=== PATIENT | male | born 1960 | race Caucasian/White ===

== ENCOUNTER 2017-03-29 19:40 | Inpatient (IN) | payer BC, OTHER ==
[~2017-03-29] VITALS: Ht 182.9 cm; Wt 104.6 kg
[~2017-03-29 19:40] MED LIST: AMIODARONE HCL (50 MG/ ML) 3 ML VIAL IV ONE; CALCIUM CHLOR(10%) 100MG/ML 10ML SYRINGE IV ONE; EPINEPHrine HCL 1 MG/10 ML SYRG IV ONE; SODIUM BICARBONATE 8.4% INJ 50ML SYRINGE IV ONE
[2017-03-29] MEDS ORDERED: AMIODARONE HCL 150 MG in D5W 5% 100 ML IV ONE (20:00)
[2017-03-29 20:02] LABS: Allen Test Yes; Base Excess -19.1 mmol/L (-2.0-2.0); Blood 02Sat 98.3 % (96-100); Blood COHb 3.8 % (0.5-1.5); Blood MetHb 0.3 % (0.0-1.5); HCO3 12.7 mmol/L (22-26.0); HHb 1.6 % (0.0-5.0); MODE VENT - A/C; O2Hb 94.3 % (94.0-97.0); PCO2 53.8 mmHg (35.0-45.0); PCO2(T) 46.2 mmHg (35.0-45.0); PO2 239.3 mmHg (80.0-100.0); Sample Type Arterial; pH 6.991 (7.350-7.450)
[2017-03-29] MEDS ORDERED: HEPARIN SODIUM (PORCINE) 5000 UNITS/ML 1ML VIAL ONE (20:02)
[2017-03-29] MEDS ORDERED: PROPOFOL 100 ML IV ONE (20:02)
[2017-03-29] MEDS ORDERED: HEPARIN SODIUM (PORCINE) 5000 UNITS/ML 1ML VIAL IV ONE (20:15)
[2017-03-29] MEDS ORDERED: PROPOFOL 10 MG/ML 20 ML IV ONE (20:15)
[2017-03-29] MEDS ORDERED: LIDOCAINE 2%HCL (LOCAL ANESTH.) INJ 20ML MDV ONE (20:18)
[2017-03-29] MEDS ORDERED: IODIXANOL 320MG/ML 100ML BTL IV ONE (20:18)
[2017-03-29 20:25] LABS: Basophils # (auto) 0.2 uL; Basophils % (auto) 0.9 % (0.0-2.0); DEFINITIVE VIEW TRANSMISSION; Eosinophils # (auto) 0.1 uL; Eosinophils % (auto) 0.6 % (0.0-7.0); Hematocrit 42.9 % (41.0-53.0); Hemoglobin 14.7 g/dL (13.5-17.5); Lymphocytes # (auto) 9.1 uL; Lymphocytes % (auto) 49.6 % (10.0-50.0); Mean Corpuscular Hemoglobin 32.3 pg (28.0-32.0); Mean Corpuscular Hgb Conc. 34.3 g/dL (32.0-36.0); Mean Corpuscular Volume 94.1 fL (80.0-100.0); Mean Platelet Volume 10.7 fL (7.4-10.4); Monocytes # (auto) 0.4 uL; Monocytes % (auto) 2.3 % (0.0-12.0); Neutrophils # (auto) 8.6 uL; Neutrophils % (auto) 46.6 % (37.0-80.0); Platelet Count (auto) 165 10^3/uL (140-450); Red Cell Distribution Width 12.7 % (11.6-16.0); White Blood Cell 18.4 10^3/uL (4.4-10.8)
[2017-03-29] MEDS ORDERED: EPTIFIBATIDE INJ (2MG/ML) 10ML VIAL IV ONE (20:31)
[2017-03-29] MEDS ORDERED: MIDAZOLAM HCL 1MG/1ML-2 ML VIAL ONE (20:31)
[2017-03-29] MEDS ORDERED: fentaNYL CITRATE 100 MCG/2 ML VL ONE (20:31)
[2017-03-29 20:44] LABS: Albumin 2.7 g/dL (3.4-5.0); Calcium 10.7 mg/dL (8.5-10.1); Magnesium 2.9 mg/dL (1.6-2.6); Potassium 3.2 mmol/L (3.5-5.1)
[2017-03-29] MEDS ORDERED: AMIODARONE HCL 900 MG in DEXTROSE 500 ML IV SCH (20:45)
[2017-03-29 20:46] LABS: INR 1.04 (0.9-1.15); Partial Thromboplastin Time 25.9 sec (22.64-33.71); Prothrombin Time 11.3 sec (9.37-12.3)
[2017-03-29 20:48] LABS: Bilirubin, Total 0.2 mg/dL (0.2-1.0); Total Protein 5.3 g/dL (6.4-8.2)
[2017-03-29 21:35] LABS: Lactic Acid w/Reflex 10.5 mmol/L (0.4-2.0)
[2017-03-29 21:36] LABS: REFLEX LACTIC ACID YES OR NO YES
[2017-03-29] MEDS ORDERED: NITROGLYCERIN 0.4 MG SL TAB SL PRN (22:15)
[2017-03-29] MEDS ORDERED: CLOPIDOGREL 300 MG TAB PO ONE (22:15)
[2017-03-29] MEDS ORDERED: MORPHINE SULF INJ 2 MG/ML SYRINGE 1ML IV PRN (22:15)
[2017-03-29 23:36] VITALS: BP 112/74
[2017-03-30] VITALS (104 sets, daily range): BP systolic 96–131; BP diastolic 49–81
[2017-03-30 00:42] LABS: Base Excess -8.5 mmol/L (-2.0-2.0); Blood COHb 0.9 % (0.5-1.5); Blood MetHb 0.4 % (0.0-1.5); HCO3 17.3 mmol/L (22-26.0); MODE VENT - A/C; O2Hb 96.7 % (94.0-97.0); PCO2 37.2 mmHg (35.0-45.0); PCO2(T) 37.2 mmHg (35.0-45.0); PO2 132.8 mmHg (80.0-100.0); PO2(T) 132.8 mmHg (80.0-100.0); Sample Type Arterial; pH 7.286 (7.350-7.450)
[2017-03-30] MEDS ORDERED: PROPOFOL 100 ML IV ONE (01:27)
[2017-03-30] MEDS: D5W/SOD CHL 0.45% 1,000 ML IV SCH ×3 (01:46→18:15)
[2017-03-30] MEDS: POTASSIUM CHL 20MEQ/100ML 100 ML IV SCH ×2 (01:46→03:35)
[2017-03-30] MEDS: PROPOFOL 100 ML IV SCH ×2 (01:58→23:33)
[2017-03-30] MEDS: AMIODARONE HCL 900 MG in DEXTROSE 500 ML IV SCH ×2 (02:45→18:56)
[2017-03-30 04:40] LABS: Anion Gap 9 (5-15); Blood Urea Nitrogen 20 mg/dL (7-18); Calcium 9.1 mg/dL (8.5-10.1); Carbon Dioxide 23 mmol/L (21-32); Chloride 109 mmol/L (98-107); Cholesterol 227 mg/dL (< 200); GFR African American 50 mL/min; GFR Non-African American 41 mL/min; Glucose 211 mg/dL (74-106); HDL Cholesterol 27 mg/dL (40-59); Potassium 5.1 mmol/L (3.5-5.1); Sodium 141 mmol/L (136-145); Triglycerides 546 mg/dL (< 150)
[2017-03-30] MEDS ORDERED: SODIUM BICARBONATE 8.4 % INJ 50ML VIAL IV ONE (07:15)
[2017-03-30 07:39] LABS: Hematocrit 49.7 % (41.0-53.0); Hemoglobin 16.9 g/dL (13.5-17.5); Mean Corpuscular Hgb Conc. 34.1 g/dL (32.0-36.0); Mean Corpuscular Volume 93.9 fL (80.0-100.0); Mean Platelet Volume 11.3 fL (7.4-10.4); Platelet Count (auto) 253 10^3/uL (140-450); Red Cell Distribution Width 12.9 % (11.6-16.0); SUSPECT VIEW TRANSMISSION; White Blood Cell 22.8 10^3/uL (4.4-10.8)
[2017-03-30 07:46] LABS: Metamyelocytes % 0; Myelocytes % 0; Promyelocytes % 0; Reactive Lymphocytes 0
[2017-03-30 08:16] LABS: Platelet Estimate Adequate; RBC Morphology Normal
[2017-03-30] MEDS: CLOPIDOGREL BISULFATE 75 MG TAB PO SCH (09:51)
[2017-03-30] MEDS: ENOXAPARIN SOD 40 MG/0.4 ML SYRINGE SC SCH (09:51)
[2017-03-30] MEDS: FAMOTIDINE (10MG/ML) 2ML VL IV SCH ×2 (09:51→21:52)
[2017-03-30] MEDS: ASPirin-EC 81 mg tab PO SCH (09:51)
[2017-03-30] MEDS: PIPERACILLIN-TAZOB 3.375GM 100 ML IV SCH ×3 (09:53→21:52)
[2017-03-30] MEDS: SUCRALFATE 1 GM/10 ML ORAL SUSP PO SCH ×3 (10:31→21:52)
[2017-03-30 11:07] LABS: Lactic Acid w/Reflex 2.8 mmol/L (0.4-2.0)
[2017-03-30 11:18] LABS: REFLEX LACTIC ACID YES OR NO NO
[2017-03-30 11:19] LABS: Allen Test Yes; Base Excess -0.8 mmol/L (-2.0-2.0); Blood 02Sat 97.8 % (96-100); Blood COHb 0.3 % (0.5-1.5); Blood MetHb 0.3 % (0.0-1.5); HCO3 22.6 mmol/L (22-26.0); HHb 2.2 % (0.0-5.0); IE RATIO 1.2.0; MODE VENT - A/C; O2Hb 97.2 % (94.0-97.0); PCO2 34.3 mmHg (35.0-45.0); PCO2(T) 34.3 mmHg (35.0-45.0); PIP 22; PO2 113.1 mmHg (80.0-100.0); PO2(T) 113.1 mmHg (80.0-100.0); Sample Type Arterial; Spont Vt 649; pH 7.437 (7.350-7.450)
[2017-03-30] MEDS: ACETAMINOPHEN 325 MG TAB PO PRN (16:32)
[2017-03-31] VITALS (105 sets, daily range): BP systolic 103–189; BP diastolic 23–114
[2017-03-31] MEDS: PIPERACILLIN-TAZOB 3.375GM 100 ML IV SCH ×4 (04:26→22:03)
[2017-03-31] MEDS: D5W/SOD CHL 0.45% 1,000 ML IV SCH ×3 (07:00→22:09)
[2017-03-31 07:46] LABS: Allen Test Yes; Base Excess -0.9 mmol/L (-2.0-2.0); Blood 02Sat 95.8 % (96-100); Blood COHb 0.4 % (0.5-1.5); Blood MetHb 0.1 % (0.0-1.5); HCO3 21.6 mmol/L (22-26.0); HHb 4.2 % (0.0-5.0); MODE VENT - A/C; O2Hb 95.3 % (94.0-97.0); PCO2 30.5 mmHg (35.0-45.0); PCO2(T) 31.2 mmHg (35.0-45.0); PO2 79.6 mmHg (80.0-100.0); PO2(T) 82.3 mmHg (80.0-100.0); Sample Type Arterial; pH 7.469 (7.350-7.450)
[2017-03-31] MEDS: ASPirin-EC 81 mg tab PO SCH (10:00)
[2017-03-31] MEDS: FAMOTIDINE (10MG/ML) 2ML VL IV SCH ×2 (10:29→22:03)
[2017-03-31] MEDS: ENOXAPARIN SOD 40 MG/0.4 ML SYRINGE SC SCH (10:29)
[2017-03-31] MEDS: CLOPIDOGREL BISULFATE 75 MG TAB PO SCH (10:30)
[2017-03-31 10:35] LABS: Hematocrit 44.8 % (41.0-53.0); Hemoglobin 15.6 g/dL (13.5-17.5); Mean Corpuscular Hemoglobin 32.4 pg (28.0-32.0); Mean Corpuscular Hgb Conc. 34.8 g/dL (32.0-36.0); Mean Corpuscular Volume 93.1 fL (80.0-100.0); Platelet Count (auto) 171 10^3/uL (140-450); SUSPECT VIEW TRANSMISSION; White Blood Cell 21.9 10^3/uL (4.4-10.8)
[2017-03-31 10:39] LABS: Metamyelocytes % 0; Myelocytes % 0; Promyelocytes % 0; Reactive Lymphocytes 0
[2017-03-31 10:56] LABS: BUN/Creatinine Ratio 12.4; Bilirubin, Total 0.7 mg/dL (0.2-1.0); Calcium 8.6 mg/dL (8.5-10.1); Potassium 3.6 mmol/L (3.5-5.1); Total Protein 6.3 g/dL (6.4-8.2)
[2017-03-31 11:03] LABS: Platelet Estimate Adequate
[2017-03-31] MEDS: SUCRALFATE 1 GM/10 ML ORAL SUSP PO SCH ×4 (12:00→22:03)
[2017-03-31] MEDS ORDERED: NITROGLYCERIN 50MG/250ML 250 ML IV ONE (13:47)
[2017-03-31] MEDS: CLINDAMYCIN 600MG IV 50 ML IV SCH ×2 (14:30→18:00)
[2017-03-31] MEDS: NITROGLYCERIN 50MG/250ML 250 ML IV SCH (14:30)
[2017-04-01] VITALS (106 sets, daily range): BP systolic 91–147; BP diastolic 42–91
[2017-04-01] MEDS: IPRATROPIUM BROM 0.5 MG/2.5ML INH SOL NEB SCH ×5 (00:14→23:58)
[2017-04-01] MEDS: ALBUTEROL SULF 2.5 MG/0.5ML(0.5%) NEB SOLN NEB SCH ×5 (00:15→23:58)
[2017-04-01] MEDS: PROPOFOL 100 ML IV SCH (01:44)
[2017-04-01] MEDS: AMIODARONE HCL 900 MG in DEXTROSE 500 ML IV SCH (02:45)
[2017-04-01] MEDS: PIPERACILLIN-TAZOB 3.375GM 100 ML IV SCH ×4 (04:19→22:00)
[2017-04-01] MEDS: SUCRALFATE 1 GM/10 ML ORAL SUSP PO SCH ×4 (06:16→22:00)
[2017-04-01] MEDS: CLINDAMYCIN 600MG IV 50 ML IV SCH ×4 (06:16→19:30)
[2017-04-01] MEDS: D5W/SOD CHL 0.45% 1,000 ML IV SCH (10:15)
[2017-04-01 10:19] LABS: Base Excess 0.4 mmol/L (-2.0-2.0); Blood 02Sat 91.3 % (96-100); Blood COHb 0.2 % (0.5-1.5); Blood MetHb 0.2 % (0.0-1.5); HCO3 24.1 mmol/L (22-26.0); HHb 8.7 % (0.0-5.0); MODE VENT - A/C; O2Hb 90.9 % (94.0-97.0); PCO2 36.1 mmHg (35.0-45.0); PCO2(T) 36.9 mmHg (35.0-45.0); PO2(T) 65.2 mmHg (80.0-100.0); Sample Type Arterial; pH 7.443 (7.350-7.450)
[2017-04-01 10:22] LABS: Basophils # (auto) 0.1 uL; Basophils % (auto) 0.4 % (0.0-2.0); Eosinophils # (auto) 0 uL; Eosinophils % (auto) 0.1 % (0.0-7.0); Hematocrit 38.9 % (41.0-53.0); Hemoglobin 13.3 g/dL (13.5-17.5); Lymphocytes # (auto) 1.5 uL; Lymphocytes % (auto) 7.7 % (10.0-50.0); Mean Corpuscular Hemoglobin 32.1 pg (28.0-32.0); Mean Corpuscular Hgb Conc. 34.3 g/dL (32.0-36.0); Mean Corpuscular Volume 93.7 fL (80.0-100.0); Mean Platelet Volume 10.2 fL (7.4-10.4); Monocytes # (auto) 1.1 uL; Monocytes % (auto) 5.7 % (0.0-12.0); Neutrophils # (auto) 16.5 uL; Neutrophils % (auto) 86.1 % (37.0-80.0); Platelet Count (auto) 163 10^3/uL (140-450); Red Cell Distribution Width 12.8 % (11.6-16.0); White Blood Cell 19.1 10^3/uL (4.4-10.8)
[2017-04-01 11:17] LABS: BUN/Creatinine Ratio 14.1; Calcium 8.2 mg/dL (8.5-10.1); Potassium 3.5 mmol/L (3.5-5.1)
[2017-04-01] MEDS: CLOPIDOGREL BISULFATE 75 MG TAB PO SCH (11:17)
[2017-04-01] MEDS: ASPirin-EC 81 mg tab PO SCH (11:17)
[2017-04-01] MEDS: FAMOTIDINE (10MG/ML) 2ML VL IV SCH ×2 (11:17→22:00)
[2017-04-01] MEDS: ENOXAPARIN SOD 40 MG/0.4 ML SYRINGE SC SCH (11:17)
[2017-04-01] MEDS: NITROGLYCERIN 50MG/250ML 250 ML IV SCH (14:30)
[2017-04-01] MEDS: LORazepam 2MG/ML-1ML VIAL IV PRN (17:24)
[2017-04-02] VITALS (107 sets, daily range): BP systolic 98–165; BP diastolic 49–137
[2017-04-02] MEDS: CLINDAMYCIN 600MG IV 50 ML IV SCH ×4 (00:33→18:10)
[2017-04-02] MEDS: PROPOFOL 100 ML IV SCH (00:37)
[2017-04-02] MEDS: AMIODARONE HCL 900 MG in DEXTROSE 500 ML IV SCH (02:45)
[2017-04-02 04:21] LABS: Basophils # (auto) 0 uL; Basophils % (auto) 0.2 % (0.0-2.0); Eosinophils # (auto) 0.2 uL; Hematocrit 34.5 % (41.0-53.0); Hemoglobin 11.8 g/dL (13.5-17.5); Lymphocytes # (auto) 1.8 uL; Lymphocytes % (auto) 11.9 % (10.0-50.0); Mean Corpuscular Hemoglobin 32.2 pg (28.0-32.0); Mean Corpuscular Hgb Conc. 34.3 g/dL (32.0-36.0); Mean Corpuscular Volume 93.8 fL (80.0-100.0); Mean Platelet Volume 10.3 fL (7.4-10.4); Monocytes # (auto) 0.8 uL; Monocytes % (auto) 5.7 % (0.0-12.0); Neutrophils # (auto) 11.9 uL; Neutrophils % (auto) 81.2 % (37.0-80.0); Platelet Count (auto) 182 10^3/uL (140-450); Red Cell Distribution Width 12.9 % (11.6-16.0); White Blood Cell 14.7 10^3/uL (4.4-10.8)
[2017-04-02] MEDS: PIPERACILLIN-TAZOB 3.375GM 100 ML IV SCH ×4 (04:41→22:23)
[2017-04-02 04:42] LABS: Calcium 8.1 mg/dL (8.5-10.1); Potassium 3.2 mmol/L (3.5-5.1)
[2017-04-02] MEDS: D5W/SOD CHL 0.45% 1,000 ML IV SCH ×3 (04:45→18:00)
[2017-04-02 04:46] LABS: BUN/Creatinine Ratio 16.4
[2017-04-02] MEDS: NITROGLYCERIN 50MG/250ML 250 ML IV SCH (04:48)
[2017-04-02] MEDS: SUCRALFATE 1 GM/10 ML ORAL SUSP PO SCH ×4 (06:15→22:23)
[2017-04-02] MEDS: ALBUTEROL SULF 2.5 MG/0.5ML(0.5%) NEB SOLN NEB SCH ×3 (06:24→18:35)
[2017-04-02] MEDS: IPRATROPIUM BROM 0.5 MG/2.5ML INH SOL NEB SCH ×3 (06:24→18:35)
[2017-04-02 07:57] LABS: Allen Test Modified; Base Excess 0.5 mmol/L (-2.0-2.0); Blood 02Sat 92.3 % (96-100); Blood COHb 0.3 % (0.5-1.5); Blood MetHb 0.3 % (0.0-1.5); HCO3 23.5 mmol/L (22-26.0); HHb 7.7 % (0.0-5.0); MODE VENT - A/C; O2Hb 91.7 % (94.0-97.0); PCO2 32.7 mmHg (35.0-45.0); PCO2(T) 32.7 mmHg (35.0-45.0); PO2 66.3 mmHg (80.0-100.0); PO2(T) 66.3 mmHg (80.0-100.0); Sample Type Arterial; pH 7.475 (7.350-7.450)
[2017-04-02] MEDS: LORazepam 2MG/ML-1ML VIAL IV PRN ×2 (09:13→11:48)
[2017-04-02] MEDS: FAMOTIDINE (10MG/ML) 2ML VL IV SCH ×2 (10:30→22:23)
[2017-04-02] MEDS: CLOPIDOGREL BISULFATE 75 MG TAB PO SCH (10:30)
[2017-04-02] MEDS: ASPirin-EC 81 mg tab PO SCH (10:30)
[2017-04-02] MEDS: ENOXAPARIN SOD 40 MG/0.4 ML SYRINGE SC SCH (10:30)
[2017-04-02] MEDS: POTASSIUM CHL 20MEQ/100ML 100 ML IV SCH ×2 (14:05→15:00)
[2017-04-03] VITALS (93 sets, daily range): BP systolic 104–184; BP diastolic 53–108
[2017-04-03] MEDS: ALBUTEROL SULF 2.5 MG/0.5ML(0.5%) NEB SOLN NEB SCH ×5 (00:13→23:58)
[2017-04-03] MEDS: IPRATROPIUM BROM 0.5 MG/2.5ML INH SOL NEB SCH ×5 (00:13→23:59)
[2017-04-03] MEDS: PROPOFOL 100 ML IV SCH (00:24)
[2017-04-03] MEDS: CLINDAMYCIN 600MG IV 50 ML IV SCH ×4 (00:24→17:19)
[2017-04-03] MEDS: AMIODARONE HCL 900 MG in DEXTROSE 500 ML IV SCH (02:45)
[2017-04-03 04:17] LABS: Basophils # (auto) 0.1 uL; Basophils % (auto) 0.6 % (0.0-2.0); Eosinophils # (auto) 0.4 uL; Hematocrit 32.5 % (41.0-53.0); Hemoglobin 11.1 g/dL (13.5-17.5); Lymphocytes # (auto) 1.5 uL; Lymphocytes % (auto) 15.2 % (10.0-50.0); Mean Corpuscular Hemoglobin 31.9 pg (28.0-32.0); Mean Corpuscular Volume 93.9 fL (80.0-100.0); Mean Platelet Volume 10.5 fL (7.4-10.4); Monocytes # (auto) 0.8 uL; Monocytes % (auto) 7.9 % (0.0-12.0); Neutrophils # (auto) 7.1 uL; Neutrophils % (auto) 72.3 % (37.0-80.0); Platelet Count (auto) 188 10^3/uL (140-450); Red Cell Distribution Width 12.8 % (11.6-16.0); White Blood Cell 9.8 10^3/uL (4.4-10.8)
[2017-04-03 04:39] LABS: Potassium 3.2 mmol/L (3.5-5.1)
[2017-04-03 04:49] LABS: Albumin 2.2 g/dL (3.4-5.0); Magnesium 2.4 mg/dL (1.6-2.6)
[2017-04-03] MEDS: PIPERACILLIN-TAZOB 3.375GM 100 ML IV SCH ×4 (05:17→22:00)
[2017-04-03 05:54] LABS: Bilirubin, Total 0.7 mg/dL (0.2-1.0); Total Protein 5.7 g/dL (6.4-8.2)
[2017-04-03 06:51] LABS: Allen Test Modified; Base Excess 2.1 mmol/L (-2.0-2.0); Blood 02Sat 94.6 % (96-100); Blood COHb 0.3 % (0.5-1.5); Blood MetHb 0.2 % (0.0-1.5); HCO3 24.2 mmol/L (22-26.0); HHb 5.4 % (0.0-5.0); MODE VENT - A/C; O2Hb 94.1 % (94.0-97.0); PCO2(T) 31.3 mmHg (35.0-45.0); Sample Type Arterial; pH 7.524 (7.350-7.450)
[2017-04-03] MEDS: SUCRALFATE 1 GM/10 ML ORAL SUSP PO SCH ×4 (08:00→22:00)
[2017-04-03] MEDS: D5W/SOD CHL 0.45% 1,000 ML IV SCH ×2 (08:00→12:15)
[2017-04-03] MEDS: LORazepam 2MG/ML-1ML VIAL IV PRN ×3 (08:00→18:28)
[2017-04-03] MEDS: ENOXAPARIN SOD 40 MG/0.4 ML SYRINGE SC SCH (09:53)
[2017-04-03] MEDS: FAMOTIDINE (10MG/ML) 2ML VL IV SCH ×2 (09:53→22:00)
[2017-04-03] MEDS: ASPirin-EC 81 mg tab PO SCH (09:54)
[2017-04-03] MEDS: CLOPIDOGREL BISULFATE 75 MG TAB PO SCH (09:54)
[2017-04-03] MEDS: POTASSIUM CHL 10% (20 MEQ/15ML) ORAL SOLN GT SCH (13:30)
[2017-04-03] MEDS ORDERED: LIDOCAINE 1% HCL (LOCAL ANESTH.) INJ 20ML MDV ID ONE (13:45)
[2017-04-03] MEDS: NITROGLYCERIN 50MG/250ML 250 ML IV SCH (15:08)
[2017-04-03 15:23] LABS: Allen Test Modified; Base Excess 0.8 mmol/L (-2.0-2.0); Blood 02Sat 96.6 % (96-100); Blood COHb 0.2 % (0.5-1.5); Blood MetHb 0.2 % (0.0-1.5); HCO3 23.6 mmol/L (22-26.0); HHb 3.4 % (0.0-5.0); MODE VENT - A/C; O2Hb 96.2 % (94.0-97.0); PCO2 32.3 mmHg (35.0-45.0); PCO2(T) 32.3 mmHg (35.0-45.0); PO2 91.2 mmHg (80.0-100.0); PO2(T) 91.2 mmHg (80.0-100.0); Sample Type Arterial; pH 7.482 (7.350-7.450)
[2017-04-03] MEDS: ACETAMINOPHEN 325 MG TAB PO PRN (17:19)
[2017-04-03 19:56] LABS: Allen Test Yes; Base Excess -0.2 mmol/L (-2.0-2.0); Blood 02Sat 95.8 % (96-100); Blood COHb 0.4 % (0.5-1.5); Blood MetHb 0.2 % (0.0-1.5); HCO3 22.8 mmol/L (22-26.0); HHb 4.2 % (0.0-5.0); MODE VENT - A/C; O2Hb 95.2 % (94.0-97.0); PCO2 32.5 mmHg (35.0-45.0); PCO2(T) 32.5 mmHg (35.0-45.0); PO2 82.8 mmHg (80.0-100.0); PO2(T) 82.8 mmHg (80.0-100.0); Sample Type Arterial; pH 7.464 (7.350-7.450)
[2017-04-03 20:07] LABS: Urine Bilirubin Negative (Negative); Urine Color Yellow (Yellow); Urine Glucose Normal (Normal); Urine Ketone Negative (Negative); Urine Mucus FEW (None Seen); Urine Nitrite Negative (Negative); Urine RBC 156 /hpf (0 - 3); Urine Squamous Epithelial Cell FEW /hpf (<5); Urine Urobilinogen Normal (Negative)
[2017-04-03 20:08] LABS: Urine Blood 2+ /uL (Negative)
[2017-04-03] MEDS: SODIUM CHLOR 0.9% PF (SALINE LOCK) 10ML VIAL IV SCH (22:00)
[2017-04-04] VITALS (79 sets, daily range): BP systolic 109–170; BP diastolic 57–95
[2017-04-04] MEDS: LORazepam 2MG/ML-1ML VIAL IV PRN (00:32)
[2017-04-04] MEDS: PROPOFOL 100 ML IV SCH (01:44)
[2017-04-04] MEDS: AMIODARONE HCL 900 MG in DEXTROSE 500 ML IV SCH (02:45)
[2017-04-04 03:47] LABS: Basophils # (auto) 0.2 uL; Basophils % (auto) 1.1 % (0.0-2.0); Eosinophils # (auto) 0.3 uL; Eosinophils % (auto) 2.5 % (0.0-7.0); Hematocrit 34.7 % (41.0-53.0); Hemoglobin 11.8 g/dL (13.5-17.5); Lymphocytes # (auto) 1.5 uL; Mean Corpuscular Hemoglobin 31.8 pg (28.0-32.0); Mean Corpuscular Hgb Conc. 33.9 g/dL (32.0-36.0); Mean Corpuscular Volume 93.7 fL (80.0-100.0); Mean Platelet Volume 10.6 fL (7.4-10.4); Monocytes % (auto) 7.6 % (0.0-12.0); Neutrophils # (auto) 10.8 uL; Neutrophils % (auto) 77.8 % (37.0-80.0); Platelet Count (auto) 206 10^3/uL (140-450); Red Cell Distribution Width 12.6 % (11.6-16.0); White Blood Cell 13.9 10^3/uL (4.4-10.8)
[2017-04-04 04:27] LABS: Albumin 2.3 g/dL (3.4-5.0); Calcium 7.9 mg/dL (8.5-10.1); Potassium 3.3 mmol/L (3.5-5.1)
[2017-04-04 04:29] LABS: BUN/Creatinine Ratio 17.1
[2017-04-04 04:32] LABS: Bilirubin, Total 1.1 mg/dL (0.2-1.0); Total Protein 6.5 g/dL (6.4-8.2)
[2017-04-04] MEDS: PIPERACILLIN-TAZOB 3.375GM 100 ML IV SCH ×4 (04:46→22:00)
[2017-04-04] MEDS: CLINDAMYCIN 600MG IV 50 ML IV SCH ×4 (06:00→17:20)
[2017-04-04] MEDS: IPRATROPIUM BROM 0.5 MG/2.5ML INH SOL NEB SCH ×3 (06:12→18:26)
[2017-04-04] MEDS: ALBUTEROL SULF 2.5 MG/0.5ML(0.5%) NEB SOLN NEB SCH ×3 (06:12→18:26)
[2017-04-04] MEDS: SUCRALFATE 1 GM/10 ML ORAL SUSP PO SCH ×4 (07:00→22:00)
[2017-04-04 07:28] LABS: Allen Test Yes; Base Excess -1.3 mmol/L (-2.0-2.0); Blood 02Sat 96.8 % (96-100); Blood COHb 0.3 % (0.5-1.5); Blood MetHb 0.3 % (0.0-1.5); HCO3 22.3 mmol/L (22-26.0); HHb 3.2 % (0.0-5.0); MODE VENT - A/C; O2Hb 96.2 % (94.0-97.0); PCO2 33.8 mmHg (35.0-45.0); PCO2(T) 33.8 mmHg (35.0-45.0); PO2 102.3 mmHg (80.0-100.0); PO2(T) 102.3 mmHg (80.0-100.0); Sample Type Arterial; pH 7.438 (7.350-7.450)
[2017-04-04] MEDS: CLOPIDOGREL BISULFATE 75 MG TAB PO SCH (09:41)
[2017-04-04] MEDS: FAMOTIDINE (10MG/ML) 2ML VL IV SCH ×2 (09:41→22:00)
[2017-04-04] MEDS: ASPirin-EC 81 mg tab PO SCH (09:41)
[2017-04-04] MEDS: SODIUM CHLOR 0.9% PF (SALINE LOCK) 10ML VIAL IV SCH ×2 (09:42→22:00)
[2017-04-04] MEDS: ENOXAPARIN SOD 40 MG/0.4 ML SYRINGE SC SCH (09:42)
[2017-04-04] MEDS: D5W/SOD CHL 0.45% 1,000 ML IV SCH ×3 (09:48→18:31)
[2017-04-04] MEDS: POTASSIUM CHL 10% (20 MEQ/15ML) ORAL SOLN GT SCH (09:49)
[2017-04-04] MEDS: NITROGLYCERIN 50MG/250ML 250 ML IV SCH (15:50)
[2017-04-05] VITALS (60 sets, daily range): BP systolic 107–160; BP diastolic 55–119
[2017-04-05] MEDS: ALBUTEROL SULF 2.5 MG/0.5ML(0.5%) NEB SOLN NEB SCH ×4 (00:47→18:18)
[2017-04-05] MEDS: IPRATROPIUM BROM 0.5 MG/2.5ML INH SOL NEB SCH ×4 (00:47→18:18)
[2017-04-05] MEDS: PROPOFOL 100 ML IV SCH (01:44)
[2017-04-05] MEDS: AMIODARONE HCL 900 MG in DEXTROSE 500 ML IV SCH (02:45)
[2017-04-05 04:10] LABS: Basophils # (auto) 0.1 uL; Basophils % (auto) 0.9 % (0.0-2.0); Eosinophils # (auto) 0.5 uL; Hemoglobin 11.3 g/dL (13.5-17.5); Lymphocytes # (auto) 1.5 uL; Lymphocytes % (auto) 9.6 % (10.0-50.0); Mean Corpuscular Hgb Conc. 34.1 g/dL (32.0-36.0); Mean Platelet Volume 10.6 fL (7.4-10.4); Monocytes % (auto) 6.4 % (0.0-12.0); Neutrophils # (auto) 12.6 uL; Neutrophils % (auto) 80.1 % (37.0-80.0); Platelet Count (auto) 207 10^3/uL (140-450); Red Cell Distribution Width 12.8 % (11.6-16.0); White Blood Cell 15.7 10^3/uL (4.4-10.8)
[2017-04-05] MEDS: PIPERACILLIN-TAZOB 3.375GM 100 ML IV SCH ×4 (04:19→21:24)
[2017-04-05 04:32] LABS: Albumin 2.2 g/dL (3.4-5.0); Bilirubin, Total 1.1 mg/dL (0.2-1.0); Potassium 3.4 mmol/L (3.5-5.1); Total Protein 5.8 g/dL (6.4-8.2)
[2017-04-05] MEDS: D5W/SOD CHL 0.45% 1,000 ML IV SCH ×2 (05:30→14:15)
[2017-04-05] MEDS: CLINDAMYCIN 600MG IV 50 ML IV SCH ×4 (06:00→17:51)
[2017-04-05] MEDS: SUCRALFATE 1 GM/10 ML ORAL SUSP PO SCH ×4 (07:00→21:24)
[2017-04-05 08:29] LABS: Allen Test Modified; Base Excess -1.8 mmol/L (-2.0-2.0); Blood 02Sat 95.3 % (96-100); Blood MetHb 0.2 % (0.0-1.5); HCO3 21.3 mmol/L (22-26.0); HHb 4.6 % (0.0-5.0); MODE VENT - A/C; O2Hb 94.2 % (94.0-97.0); PCO2 32.2 mmHg (35.0-45.0); PCO2(T) 32.2 mmHg (35.0-45.0); PIP 21; PO2 78.9 mmHg (80.0-100.0); PO2(T) 78.9 mmHg (80.0-100.0); Sample Type Arterial; pH 7.438 (7.350-7.450)
[2017-04-05] MEDS: FAMOTIDINE (10MG/ML) 2ML VL IV SCH ×2 (10:11→21:24)
[2017-04-05] MEDS: CLOPIDOGREL BISULFATE 75 MG TAB PO SCH (10:15)
[2017-04-05] MEDS: POTASSIUM CHL 10% (20 MEQ/15ML) ORAL SOLN GT SCH (10:15)
[2017-04-05] MEDS: SODIUM CHLOR 0.9% PF (SALINE LOCK) 10ML VIAL IV SCH ×2 (10:15→21:24)
[2017-04-05] MEDS: ENOXAPARIN SOD 40 MG/0.4 ML SYRINGE SC SCH (10:15)
[2017-04-05] MEDS: ASPirin-EC 81 mg tab PO SCH (10:15)
[2017-04-05] MEDS: NITROGLYCERIN 50MG/250ML 250 ML IV SCH (14:30)
[2017-04-05] MEDS ORDERED: [UNRECOGNIZED DRUG - OTHER] IV PRN (17:45)
[2017-04-05] MEDS ORDERED: CHLORPROMAZINE IV PRN (17:45)
[2017-04-06] VITALS (107 sets, daily range): BP systolic 102–166; BP diastolic 49–105
[2017-04-06] MEDS: D5W/SOD CHL 0.45% 1,000 ML IV SCH ×3 (00:26→19:00)
[2017-04-06] MEDS: CLINDAMYCIN 600MG IV 50 ML IV SCH ×4 (00:26→18:13)
[2017-04-06] MEDS: IPRATROPIUM BROM 0.5 MG/2.5ML INH SOL NEB SCH ×4 (00:30→18:40)
[2017-04-06] MEDS: ALBUTEROL SULF 2.5 MG/0.5ML(0.5%) NEB SOLN NEB SCH ×4 (00:30→18:40)
[2017-04-06] MEDS: PROPOFOL 100 ML IV SCH (01:44)
[2017-04-06] MEDS: PIPERACILLIN-TAZOB 3.375GM 100 ML IV SCH ×4 (04:00→21:36)
[2017-04-06] MEDS: SUCRALFATE 1 GM/10 ML ORAL SUSP PO SCH ×4 (06:42→21:36)
[2017-04-06 07:26] LABS: Allen Test Modified; Blood 02Sat 95.1 % (96-100); Blood COHb 0.3 % (0.5-1.5); Blood MetHb 0.1 % (0.0-1.5); HCO3 25.4 mmol/L (22-26.0); HHb 4.9 % (0.0-5.0); MODE VENT - A/C; O2Hb 94.7 % (94.0-97.0); PCO2 35.6 mmHg (35.0-45.0); PCO2(T) 35.6 mmHg (35.0-45.0); PO2 82.6 mmHg (80.0-100.0); PO2(T) 82.6 mmHg (80.0-100.0); Sample Type Arterial; pH 7.471 (7.350-7.450)
[2017-04-06 08:31] LABS: Basophils # (auto) 0.1 uL; Basophils % (auto) 0.9 % (0.0-2.0); Eosinophils # (auto) 0.5 uL; Eosinophils % (auto) 3.6 % (0.0-7.0); Hematocrit 36.1 % (41.0-53.0); Hemoglobin 12.5 g/dL (13.5-17.5); Lymphocytes # (auto) 1.3 uL; Lymphocytes % (auto) 8.8 % (10.0-50.0); Mean Corpuscular Hemoglobin 32.4 pg (28.0-32.0); Mean Corpuscular Hgb Conc. 34.6 g/dL (32.0-36.0); Mean Corpuscular Volume 93.4 fL (80.0-100.0); Mean Platelet Volume 10.5 fL (7.4-10.4); Monocytes # (auto) 1.2 uL; Monocytes % (auto) 8.1 % (0.0-12.0); Neutrophils # (auto) 11.4 uL; Neutrophils % (auto) 78.6 % (37.0-80.0); Platelet Count (auto) 218 10^3/uL (140-450); Red Cell Distribution Width 13.1 % (11.6-16.0); White Blood Cell 14.5 10^3/uL (4.4-10.8)
[2017-04-06 08:37] LABS: Albumin 2.3 g/dL (3.4-5.0); Bilirubin, Total 1.1 mg/dL (0.2-1.0); Calcium 8.4 mg/dL (8.5-10.1); Potassium 3.5 mmol/L (3.5-5.1); Total Protein 6.4 g/dL (6.4-8.2)
[2017-04-06] MEDS: ENOXAPARIN SOD 40 MG/0.4 ML SYRINGE SC SCH (10:15)
[2017-04-06] MEDS: SODIUM CHLOR 0.9% PF (SALINE LOCK) 10ML VIAL IV SCH ×2 (10:16→21:36)
[2017-04-06] MEDS: FAMOTIDINE (10MG/ML) 2ML VL IV SCH ×2 (10:16→21:36)
[2017-04-06] MEDS: POTASSIUM CHL 10% (20 MEQ/15ML) ORAL SOLN GT SCH (10:16)
[2017-04-06] MEDS: CLOPIDOGREL BISULFATE 75 MG TAB PO SCH (10:16)
[2017-04-06] MEDS: ASPirin-EC 81 mg tab PO SCH (10:16)
[2017-04-06] MEDS: NITROGLYCERIN 50MG/250ML 250 ML IV SCH (13:13)
[2017-04-06] MEDS: LORazepam 2MG/ML-1ML VIAL IV PRN (16:54)
[2017-04-07] VITALS (74 sets, daily range): BP systolic 102–162; BP diastolic 54–96
[2017-04-07] MEDS: ALBUTEROL SULF 2.5 MG/0.5ML(0.5%) NEB SOLN NEB SCH ×2 (00:15→05:41)
[2017-04-07] MEDS: IPRATROPIUM BROM 0.5 MG/2.5ML INH SOL NEB SCH ×2 (00:15→05:42)
[2017-04-07] MEDS: PIPERACILLIN-TAZOB 3.375GM 100 ML IV SCH ×2 (03:20→10:02)
[2017-04-07] MEDS: D5W/SOD CHL 0.45% 1,000 ML IV SCH (06:26)
[2017-04-07] MEDS: CLINDAMYCIN 600MG IV 50 ML IV SCH ×2 (06:26)
[2017-04-07] MEDS: SUCRALFATE 1 GM/10 ML ORAL SUSP PO SCH (06:27)
[2017-04-07 08:10] LABS: Allen Test Yes; Base Excess -0.4 mmol/L (-2.0-2.0); Blood 02Sat 96.2 % (96-100); Blood COHb 0.8 % (0.5-1.5); Blood MetHb 0.2 % (0.0-1.5); HCO3 22.3 mmol/L (22-26.0); HHb 3.8 % (0.0-5.0); MODE VENT - A/C; O2Hb 95.2 % (94.0-97.0); PCO2 31.1 mmHg (35.0-45.0); PCO2(T) 31.1 mmHg (35.0-45.0); PIP 28; Sample Type Arterial; Spont Vt 677; pH 7.474 (7.350-7.450)
[2017-04-07] MEDS ORDERED: LEVOFLOXACIN 500MG 100 ML IV SCH (10:00)
[2017-04-07] MEDS: ENOXAPARIN SOD 40 MG/0.4 ML SYRINGE SC SCH (10:02)
[2017-04-07] MEDS: FAMOTIDINE (10MG/ML) 2ML VL IV SCH (10:02)
[2017-04-07] MEDS: ASPirin-EC 81 mg tab PO SCH (10:02)
[2017-04-07] MEDS: CLOPIDOGREL BISULFATE 75 MG TAB PO SCH (10:02)
[2017-04-07] MEDS: SODIUM CHLOR 0.9% PF (SALINE LOCK) 10ML VIAL IV SCH (10:03)
[2017-04-07] MEDS: POTASSIUM CHL 10% (20 MEQ/15ML) ORAL SOLN GT SCH (10:03)
[2017-04-07] MEDS ORDERED: LEVOFLOXACIN 500MG 100 ML IV ONE (10:04)
[2017-04-07] MEDS ORDERED: LORazepam 2MG/ML-1ML VIAL IV PRN (11:15)
[2017-04-07] MEDS: MORPHINE SULF INJ 2 MG/ML SYRINGE 1ML IV PRN ×4 (11:20→22:59)
[2017-04-08] MEDS: MORPHINE SULF INJ 2 MG/ML SYRINGE 1ML IV PRN ×3 (03:05→20:35)
[2017-04-08 05:46] VITALS: BP 131/82
[2017-04-08 09:00] VITALS: BP 137/79
[2017-04-08 13:00] VITALS: BP 138/75
[2017-04-08 17:00] VITALS: BP 158/103
[2017-04-08 22:00] VITALS: BP 163/98
[2017-04-09] MEDS: MORPHINE SULF INJ 2 MG/ML SYRINGE 1ML IV PRN ×3 (00:14→11:03)
[2017-04-09 05:00] VITALS: BP 147/86
[2017-04-09 08:24] VITALS: BP 144/77
[2017-04-09 12:30] VITALS: BP 138/90
[2017-04-09 17:22] VITALS: BP 158/96
[2017-04-09 21:51] VITALS: BP 154/101
[2017-04-10 05:23] VITALS: BP 130/88
[2017-04-10 09:41] VITALS: BP 125/83
[2017-04-10 13:00] VITALS: BP 126/83
[2017-04-10 17:08] VITALS: BP 121/70
[2017-04-10 22:00] VITALS: BP 136/80
[2017-04-11 05:38] VITALS: BP 112/51
[2017-04-11] MEDS: MORPHINE SULF INJ 2 MG/ML SYRINGE 1ML IV PRN (07:45)
[2017-04-11 09:27] VITALS: BP 162/102
[2017-04-11 13:00] VITALS: BP 146/89
[2017-04-11 16:43] VITALS: BP 140/86
[2017-04-11 16:45] VITALS: BP 140/86
== END 2017-04-11 18:40 | disposition hospice, home (50) | DRG 246 ==
LOC: ER 19:44 → CATH 1 21:33 → ICU WEST 21:34 → CENTRAL 04-07 18:27
PROVIDERS: ADMIT Specialist; ATTEND Specialist
PROC: 5A2204Z Restoration of Cardiac Rhythm, Single (ICD-10-PCS; principal; 2017-03-29)
PROC: 02C03ZZ Extirpation of Matter from Coronary Artery, One Artery, Percutaneous Approach (ICD-10-PCS; 2017-03-29)
PROC: 027035Z Dilation of Coronary Artery, One Artery with Two Drug-eluting Intraluminal Devices, Percutaneous Approach (ICD-10-PCS; 2017-03-29)
PROC: 5A1955Z Respiratory Ventilation, Greater than 96 Consecutive Hours (ICD-10-PCS; 2017-03-29)
PROC: 0BH17EZ Insertion of Endotracheal Airway into Trachea, Via Natural or Artificial Opening (ICD-10-PCS; 2017-03-29)
PROC: 4A023N7 Measurement of Cardiac Sampling and Pressure, Left Heart, Percutaneous Approach (ICD-10-PCS; 2017-03-29)
PROC: B2111ZZ Fluoroscopy of Multiple Coronary Arteries using Low Osmolar Contrast (ICD-10-PCS; 2017-03-29)
PROC: B41G1ZZ Fluoroscopy of Left Lower Extremity Arteries using Low Osmolar Contrast (ICD-10-PCS; 2017-03-29)
PROC: 02HV33Z Insertion of Infusion Device into Superior Vena Cava, Percutaneous Approach (ICD-10-PCS; 2017-03-29)
PROC: 5A12012 Performance of Cardiac Output, Single, Manual (ICD-10-PCS; 2017-03-29)
DX: I21.19 ST elevation (STEMI) myocardial infarction involving other coronary artery of inferior wall (principal); I49.01 Ventricular fibrillation; J96.00 Acute respiratory failure, unspecified whether with hypoxia or hypercapnia; J18.9 Pneumonia, unspecified organism; E87.0 Hyperosmolality and hypernatremia; E87.2 Acidosis; G93.1 Anoxic brain damage, not elsewhere classified; N17.9 Acute kidney failure, unspecified; J44.0 Chronic obstructive pulmonary disease with (acute) lower respiratory infection; E66.9 Obesity, unspecified; E78.5 Hyperlipidemia, unspecified; I10 Essential (primary) hypertension; I25.10 Atherosclerotic heart disease of native coronary artery without angina pectoris; Z86.74 Personal history of sudden cardiac arrest; Z95.5 Presence of coronary angioplasty implant and graft; E87.6 Hypokalemia; F17.210 Nicotine dependence, cigarettes, uncomplicated; I25.82 Chronic total occlusion of coronary artery; I48.91 Unspecified atrial fibrillation; Z66 Do not resuscitate; Z82.49 Family history of ischemic heart disease and other diseases of the circulatory system; Z68.31 Body mass index [BMI] 31.0-31.9, adult
CPT/HCPCS: 36415; 36556; 36569; 36600; 70450; 71010; 74000; 80048; 80053; 80061; 80320; 81001; 82270; 82805; 82962; 83036; 83605; 83735; 84484; 85007; 85025; 85027; 85379; 85610; 85730; 86850; 86900; 86901; 87040; 87070; 87077; 87081; 87086; 87186; 87205; 92928; 92929; 92950; 92973; 93005; 93458; 94002; 94003; 94640; 95819; 99152; 99291; A4565; C1874; J1956; J2250; J2543; J2704; J3480; J3490; J7060; Q9967